=== PATIENT | male | born 1955 | race Caucasian/White ===

== ENCOUNTER → 2017-04-02 | Outpatient (CLI) | payer OTHER ==
[~2017-04-02] MED LIST: HYDROCHLOROTHIA25 MG PO; LIPITOR40 MG PO; MULTIPLE VITAM1 EACH PO; NEURONTIN300 MG PO; NORVASC10 MG PO; OXYCODONE-APAP1 EAC6 PO
== END | disposition home or self-care (01) ==
LOC: NUC 10:46
DX: R93.7 Abnormal findings on diagnostic imaging of other parts of musculoskeletal system (principal)
CPT/HCPCS: 78306; A9503